=== PATIENT | male | born 1990 | race Caucasian/White ===

== ENCOUNTER 2017-07-21 12:21 | Emergency (ER) | payer OTHER ==
--- NOTE | 2017-07-21 12:16 | EDPHY ---
H & P Constitutional: Initial Vital Signs Temperature (C) 36.7 C 07/21/17 12:33 Heart Rate 84 07/21/17 12:33 Respiratory Rate 18 07/21/17 12:33 Blood Pressure 127/82 H 07/21/17 12:33 O2 Sat (%) 99 07/21/17 12:33 O2 Delivery Mode Room Air Allergies/Adverse Reactions: No Known Allergies Allergy (Verified 07/21/17 12:30) Home Medications: Medication Instructions Recorded NK [No Known Home Meds] 07/21/17 Medical Decision Making - Diagnostics Imaging Results: Imaging Impressions Clavicle X-Ray 07/21/17 12:26 Impression: 1. Displaced mildly comminuted midshaft left clavicle fracture. Imaging: I viewed and interpreted images myself ED Course/Re-evaluation: CHIEF COMPLAINT: Left clavicle pain HISTORY OF PRESENT ILLNESS: The patient is a 26 y/o male arriving via EMS as a LTA, complaining of left clavicle pain secondary to falling while snowboarding at [place]. He was travelling at a moderate speed while not wearing a helmet when he caught an edge and fell. He did not lose consciousness. While en route to the hospital he was given 200mcg IV Fentanyl and 4mg IV Zofran. Denies headache, numbness or weakness in extremities, fever, shortness of breath or other pertinent symptoms. REVIEW OF SYSTEMS: A 10 point review of systems was performed and is negative with the exception of the elements mentioned in the history of present illness. PHYSICAL EXAM: General Appearance: Alert, no distress, talking appropriately, comfortable. Head: Atraumatic without scalp tenderness or obvious injury Eyes: Pupils equal, round, reactive to light and accommodation, EOMI, no trauma , no injection. Ears: Clear bilaterally, no perforation, no hemotympanum Nose: Atraumatic, no rhinorrhea, no septal hematoma Neck: The patient arrived in a cervical collar. All [place] C-spine rules set criteria are negative. The cervical spine is nontender and there is no pain or neurologic deficits with active range of motion. Supple, , no trauma, trachea midline. Cardiovascular: Heart is regular rate and rhythm without murmur. Bilateral carotid, radial, dorsalis pedis pulses intact. Good capillary refill all extremities. Chest: Atraumatic, equal bilateral breath sounds. Good oxygen saturations with normal minute ventilation. Chest is nontender to palpation. Gastrointestinal: Soft, nontender, non-distended. No rebound, guarding, or peritoneal signs. There is no evidence of external or internal trauma. Back: Spinal precautions were maintained as the patient was log-rolled with cervical control. There is no thoracic or lumbar spine or paraspinal tenderness. Extremities: Bony stepoff mid-shaft clavicle, no tenting of the skin. All other extremities are nontender to palpation without obvious deformity. There is full active range of motion of the joints. Neurological: The patient has normal DTRs and non-focal Cranial nerves, motor, sensory, and cerebellar exam Skin: No lacerations, sarabia, or abrasions. Past medical history: Denies Past surgical history: Denies Family history: Denies Social history: Friend at bedside, visiting from [place] DIAGNOSTICS/PROCEDURES/CRITICAL CARE TIME: Left clavicle x-ray: Displaced mildly comminuted midshaft left clavicle fracture. DIFFERENTIAL DIAGNOSIS: The differential diagnosis for the patient's trauma included but was not limited to intracranial injury, long bone and pelvic bone fractures, spinal injury, intra-abdominal injury, and intra-thoracic injury. MEDICAL DECISION MAKING: The patient is a 26 y/o male arriving via EMS as a LTA, presenting with a bony stepoff mid-shaft clavicle secondary to falling while snowboarding without a helmet. There is no tenting of the skin. Plan on left clavicle x-ray. 1250: Patient's clavicle x-ray reveals a displaced midshaft left clavicle fracture. 1251: Reassessed patient and discussed imaging findings. Patient was placed in a sling. He will follow up with an orthopedic surgeon when he returns home to [place] in 3 days. Return precautions provided; patient is comfortable with this plan. Departure - Departure Disposition: Home, Routine, Self-Care Clinical Impression: Clavicle fracture Qualifiers: Encounter type: initial encounter Clavicle location: shaft Fracture type: closed Fracture alignment: displaced Laterality: left Qualified Code(s): S42.022A - Displaced fracture of shaft of left clavicle, initial encounter for closed fracture Condition: Good Instructions: Clavicle Fracture (ED) Additional Instructions: 1. Rest, ice, elevation. 2. Take [place] as prescribed. 3. Follow up with an orthopedic surgeon within one week. 4. Return to the emergency department for worsening pain, swelling, numbness, weakness or other concerns. 5. Wear sling at all times until reevaluation. Referrals: Miki Cedeño MD [Medical Doctor] - As per Instructions Report Scribed for: Bogdan Packer Report Scribed by: Elzbieta Sahu Date of Report: 07/21/17 Time of Report: 12:16
[2017-07-21 12:37] VITALS: RESP 18; TEMP 98.1
[2017-07-21 13:27] VITALS: BP 126/79; PULSE 98; O2SAT 97
== END 2017-07-21 13:28 | disposition home or self-care (01) ==
DX: S42.022A Displaced fracture of shaft of left clavicle, initial encounter for closed fracture (principal); V00.311A Fall from snowboard, initial encounter; Y99.8 Other external cause status; Y93.23 Activity, snow (alpine) (downhill) skiing, snowboarding, sledding, tobogganing and snow tubing
CPT/HCPCS: A4565